=== PATIENT | female | born 1990 | race Caucasian/White ===

== ENCOUNTER 2016-09-01 19:17 | Observation (INO) | payer SELFPAY ==
[~2016-09-01] VITALS: Ht 157.5 cm; Wt 57.4 kg
[~2016-09-01 19:17] MED LIST: CEPH500C3 PO; CLEO300C2 PO; Z.0.NO CURRENT MEDS
[2016-09-01 19:18] VITALS: BP 111/86; PULSE 138; RESP 18; TEMP 98.9; O2SAT 98
[2016-09-01] MEDS ORDERED: ACETAMINOPHEN 325 MG TAB PO ONE (22:00)
[2016-09-01] MEDS ORDERED: HYDROmorphone HCL PF 1 MG/ML VIAL IV ONE (22:00)
[2016-09-01] MEDS ORDERED: SODIUM CHLOR 0.9% 1000 ML INJ 1,000 ML IV ONE ×2 (22:00)
--- NOTE | 2016-09-01 22:35 | PD ---
HPI Chief Complaint: Abdominal Pain Time Seen by Provider: 21:39 Travel History International Travel<30 days: No Contact w/Intl Traveler<30days: No Traveled to known affect area: No History of Present Illness HPI 25 year-old woman, active IV drug use, presents with abdominal pain and back pain it's been ongoing for weeks. She was seen at [facility] about a week and a half ago she was diagnosed with intrauterine at about 6 weeks and 1 day, and UTI and kidney pain. She was placed on Keflex but says she never really improved. She denies any urinary symptoms. She denies any vaginal bleeding or vaginal discharge. She does not know her last menstrual cycle was. She last used IV meth today. She does endorse fevers and chills have been ongoing as well. She does have a history of osteomyelitis in her back one year ago. She is 4 para 2, 0, 1, 2 with one previous ectopic . 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 SKIN: Extensive track herman. HEAD: Atraumatic. Normocephalic. EYES: Pupils equal and round. No scleral icterus. No injection or drainage. ENT: No nasal bleeding or discharge. Mucous membranes pink and moist. NECK: Trachea midline. No JVD. CARDIOVASCULAR: Regular rate and rhythm. No murmur appreciated. RESPIRATORY: No accessory muscle use. Clear to auscultation. Breath sounds equal bilaterally. GASTROINTESTINAL: Abdomen soft obese and soft. Is no significant tenderness. MUSCULOSKELETAL: No obvious deformities. No edema. NEUROLOGICAL: Awake and alert. No obvious cranial nerve deficits. Motor grossly within normal limits. Normal speech. PSYCHIATRIC: Childlike and labile in her mood. Data Data Last Documented VS Vital Signs Date Time Temp Pulse Resp B/P Pulse Ox O2 Delivery O2 Flow Rate FiO2 09/02/16 00:14 98 18 124/74 99 Room Air 09/01/16 19:18 98.9 Orders Complete Blood Count With Diff (09/01/16 21:53) Comprehensive Metabolic Panel (09/01/16 21:53) Lactic Acid Sepsis Protocol (09/01/16 21:53) Urinalysis - C+S If Indicated (09/01/16 21:53) Blood Culture (09/01/16 21:53) Chest, Single Ap (09/01/16 21:53) Ecg Monitoring (09/01/16 21:53) Iv Access Insert/Monitor (09/01/16 21:53) Oximetry (09/01/16 21:53) Oxygen Administration (09/01/16 21:53) Acetaminophen (Tylenol) (09/01/16 22:00) Hydromorphone Pf Inj (Dilaudid Pf Inj) (09/01/16 22:00) Beta Hcg (Quant/Titer) (09/01/16 21:53) Ed Poc Ultrasound (09/01/16 ) Westergren Sedimentation Rate (09/01/16 21:53) C-Reactive Protein (Crp) (09/01/16 21:53) Sodium Chlor 0.9% 1000 Ml Inj (Ns 1000 M (09/01/16 22:00) Sodium Chlor 0.9% 1000 Ml Inj (Ns 1000 M (09/01/16 22:00) Urine Culture (09/01/16 22:08) Mri L Spine W/O Contrast (09/01/16 ) Mri T Spine W/O Contrast (09/01/16 ) Hydromorphone Pf Inj (Dilaudid Pf Inj) (09/01/16 23:15) Hydromorphone Pf Inj (Dilaudid Pf Inj) (09/01/16 23:15) Vancomycin Inj (Vancomycin Inj) (09/02/16 00:45) Cefepime Inj (Maxipime Inj) (09/02/16 00:45) Admit Order (Ed Use Only) (09/02/16 ) Place In Observation (09/02/16 ) Vital Signs (Adult) Q4H (09/02/16 00:37) Activity Oob With Assistance (09/02/16 00:37) Patent Solicitor / Telemetry .CONTINUOUS (09/02/16 00:37) Diet Heart Healthy (09/02/16 Breakfast) Sodium Chloride 0.9% Flush (Ns Flush) (09/02/16 00:45) Sodium Chloride 0.9% Flush (Ns Flush) (09/02/16 09:00) Basic Metabolic Panel (Bmp) (09/03/16 06:00) Complete Blood Count With Diff (09/03/16 06:00) Case Management Consult (09/02/16 00:37) Naloxone Inj (Narcan Inj) (09/02/16 00:45) Acetaminophen (Tylenol) (09/02/16 00:45) Labs Laboratory Tests Test 09/01/16 22:08 White Blood Count 8.7 TH/MM3 Red Blood Count 3.71 MIL/MM3 Hemoglobin 10.2 GM/DL Hematocrit 30.7 % Mean Corpuscular Volume 82.6 FL Mean Corpuscular Hemoglobin 27.5 PG Mean Corpuscular Hemoglobin 33.2 % Concent Red Cell Distribution Width 15.3 % Platelet Count 206 TH/MM3 Mean Platelet Volume 7.7 FL Neutrophils (%) (Auto) 92.0 % Lymphocytes (%) (Auto) 4.5 % Monocytes (%) (Auto) 3.1 % Eosinophils (%) (Auto) 0.2 % Basophils (%) (Auto) 0.2 % Neutrophils # (Auto) 8.0 TH/MM3 Lymphocytes # (Auto) 0.4 TH/MM3 Monocytes # (Auto) 0.3 TH/MM3 Eosinophils # (Auto) 0.0 TH/MM3 Basophils # (Auto) 0.0 TH/MM3 CBC Comment DIFF FINAL Differential Comment Erythrocyte Sedimentation Rate 75 mm/hr Urine Color YELLOW Urine Turbidity HAZY Urine pH 6.5 Urine Specific [place] 1.035 Urine Protein 30 mg/dL Urine Glucose (UA) NEG mg/dL Urine Ketones NEG mg/dL Urine Occult Blood SMALL Urine Nitrite POS Urine Bilirubin NEG Urine Urobilinogen 2.0 MG/DL Urine Leukocyte Esterase MOD Urine RBC 1 /hpf Urine WBC 38 /hpf Urine Bacteria MANY /hpf Urine Mucus MANY /lpf Microscopic Urinalysis Comment CATH-CULTURE IND Sodium Level 136 MEQ/L Potassium Level 3.3 MEQ/L Chloride Level 106 MEQ/L Carbon Dioxide Level 17.9 MEQ/L Anion Gap 12 MEQ/L Blood Urea Nitrogen 10 MG/DL Creatinine 0.45 MG/DL Estimat Glomerular Filtration 170 ML/MIN Rate Random Glucose 100 MG/DL Calcium Level 8.5 MG/DL Total Bilirubin 0.4 MG/DL Aspartate Amino Transf 25 U/L (AST/SGOT) Alanine Aminotransferase 48 U/L (ALT/SGPT) Alkaline Phosphatase 95 U/L C-Reactive Protein 9.70 MG/DL Total Protein 7.8 GM/DL Albumin 3.0 GM/DL Human Chorionic Gonadotropin, [address] MIU/ML Quant Lactic Acid Level 2.2 mmol/L [facility] Medical Decision Making Medical Screen Exam Complete: Yes Emergency Medical Condition: Yes Interpretation(s) LABS: CBC remarkable for mild anemia Sedimentation rate 75 CMP remarkable for bicarbonate 17.9 CRP 9.7 Lactate 2.2 HCG 35,000 UA with slight pyuria L-spine MRI: Abnormal disc space at L5-S1 to be due to old osteomyelitis less discitis without any appreciable edema to suggest an acute process however active discitis/osteomyelitis difficult to exclude. T-spine MRI negative Differential Diagnosis UTI, pyelonephritis, osteomyelitis, renal lithiasis, other Narrative Course Medical decision making INITIAL: 25 year-old woman with active IV drug use, at about 9 weeks, with confirmed IUP, back pain fevers chills and no urinary symptoms, treated for UTI without improvement, concerning for osteomyelitis. We'll check labs, MRI, cultures, reassess. FINAL: 25 year-old woman with sepsis, likely pyelonephritis versus osteomyelitis. Blood cultures obtained. Vital sign assessment, could've by methamphetamine usage prior to arrival. We'll give IV antibiotics, IV fluids, reassess. Procedures Procedure Narrative Point of care ultrasound: Focus transabdominal ultrasounds perform a me at the bedside to evaluate for well-being. About 9 weeks 4 days by crown rump length. Some movement seen. heart rate about 218. Scripts No Active Prescriptions or Reported Meds Dwaine Downey MD Sep 01, 2016 22:35
--- NOTE | 2016-09-01 22:35 | RADRPT ---
EXAM DATE/TIME: 09/01/2016 22:28 [facility] COMPARISON: No previous studies available for comparison. INDICATIONS : Chest pain. MEDICAL HISTORY : None. SURGICAL HISTORY : None. ENCOUNTER: Initial ACUITY: 1 day PAIN SCORE: 0/10 LOCATION: Bilateral chest FINDINGS: Left perihilar infiltrate suspected with air bronchograms, appears to extend primarily into the lower lobe. Right lung appears reasonably clear. No pleural effusion or pneumothorax seen on either side. Heart size within normal limits. CONCLUSION: Early left lower lobe pneumonia suspected. Kurtis Chavez MD on September 01, 2016 at 22:31 Board Certified Radiologist. This report was verified electronically.
[2016-09-01 22:37] LABS: BASOPHIL % 0.2 % (0.0-2.0); EOSINOPHIL % 0.2 % (0.0-4.0); HEMATOCRIT 30.7 % (35.0-46.0); HEMO FLAGS DIFF FINAL; LYMPH % 4.5 % (9.0-44.0); LYMPHOCYTE # 0.4 TH/MM3 (1.0-4.8); MEAN CELL VOLUME 82.6 FL (80.0-100.0); MEAN CORPUSCULAR HEMOGLOBIN 27.5 PG (27.0-34.0); MEAN CORPUSCULAR HGB CONC 33.2 % (32.0-36.0); MONO % 3.1 % (0.0-8.0); PLATELET COUNT 206 TH/MM3 (150-450); RED BLOOD COUNT 3.71 MIL/MM3 (4.00-5.30); RED CELL DISTRIBUTION WIDTH 15.3 % (11.6-17.2); WHITE BLOOD COUNT 8.7 TH/MM3 (4.0-11.0)
[2016-09-01 22:46] LABS: BACTERIA, URINE MANY /hpf; BLOOD, URINE SMALL (NEG); GLUCOSE,URINE NEG (NEG); KETONE, URINE NEG (NEG); MUCUS URINE MANY /lpf (OCC); PH, URINE 6.5 (5.0-8.5); URINE COLOR YELLOW (YELLW/STRAW)
[2016-09-01 22:48] LABS: COMMENT (UR) CATH-CULTURE IND; CULTURE IF INDICATED CATH CULTURE IND; NITRITE,URINE POS (NEG)
[2016-09-01 22:57] LABS: ANION GAP 12 MEQ/L (5-15); AST (GOT) 25 U/L (15-37); BICARBONATE 17.9 MEQ/L (21.0-32.0); BLOOD UREA NITROGEN 10 MG/DL (7-18); CHLORIDE 106 MEQ/L (98-107); GLOMERULAR FILTRATION RATE 170 ML/MIN (>89); POTASSIUM 3.3 MEQ/L (3.5-5.1); SODIUM (NA) 136 MEQ/L (136-145)
[2016-09-01 23:15] LABS: ALKALINE PHOSPHATASE 95 U/L (45-117); ALT (GPT) 48 U/L (10-53); BETA HCG QUANT 35116 MIU/ML (0-5); TOTAL BILIRUBIN ADULT 0.4 MG/DL (0.2-1.0)
[2016-09-01] MEDS ORDERED: HYDROmorphone HCL PF 1 MG/ML VIAL IVS ONE (23:15)
[2016-09-01] MEDS ORDERED: HYDROmorphone HCL PF 1 MG/ML VIAL IV PUSH ONE (23:15)
[2016-09-02 00:13] VITALS: O2SAT 99
[2016-09-02 00:14] VITALS: BP 124/74; PULSE 98; RESP 18; O2SAT 99
--- NOTE | 2016-09-02 00:19 | RADRPT ---
EXAM DATE/TIME: 09/01/2016 23:20 This report includes an Addendum and supersedes previous reports for this exam. [facility] COMPARISON: MRI THORACIC SPINE W/O CONTRAST, September 01, 2016, 23:20. INDICATIONS : Osteomyelitis. MEDICAL HISTORY : . SURGICAL HISTORY : Appendectomy. Cholecystectomy. Left arm. ENCOUNTER: Subsequent ACUITY: 1 day PAIN SCORE: 8/10 LOCATION: Lower back. TECHNIQUE: Multiplanar multisequence MRI of the lumbar spine was performed without contrast. FINDINGS: There is a tiny subcentimeter cysts in the left kidney. L1-L2: No appreciable compromise to the thecal sac, or the exiting nerve roots is seen. The neural foramina and lateral recesses are patent bilaterally. L2-L3: No appreciable compromise to the thecal sac, or the exiting nerve roots is seen. The neural foramina and lateral recesses are patent bilaterally. L3-L4: No appreciable compromise to the thecal sac, or the exiting nerve roots is seen. The neural foramina and lateral recesses are patent bilaterally. L4-L5: No appreciable compromise to the thecal sac, or the exiting nerve roots is seen. The neural foramina and lateral recesses are patent bilaterally. L5-S1: There is significant loss of the disc at this level with irregularity of the endplates. The he ight of L5 vertebra is slightly reduced due to inferior end plate destructive changes. These however appear to be chronic without any significant edema. There is mild abutting of the exiting S1 nerve ro ot on the left due to a small broad-based disc protrusion. No appreciable thecal sac stenosis is seen . CONCLUSION: 1. Abnormal disc space at L5-S1 could be due to old osteomyelitis/discitis without any appreciable ed stevie to suggest an acute process. Active discitis/osteomyelitis however is difficult to exclude. 2. Slight abutting of the exiting S1 nerve root on the left due to a small broad-based disc protrusio n. K. Russell Garrison MD on September 02, 2016 at 0:11 Board Certified Radiologist. This report was verified electronically. 3. 4. ADDENDUM: 5. 6. I reviewed the examination began with Dr. Mensah. There is essentially no marrow edema at the tyrell mbosacral junction which makes discitis or osteomyelitis highly unlikely. There is no epidural fluid collection to suggest abscess. The visualized psoas musculature is normal. 7. 8. Musa Tapia MD on September 02, 2016 at 12:20 Board Certified Radiologist. This report was verified electronically.
--- NOTE | 2016-09-02 00:20 | RADRPT ---
EXAM DATE/TIME: 09/01/2016 23:20 [facility] COMPARISON: MRI LUMBAR SPINE W/O CONTRAST, September 01, 2016, 23:20. INDICATIONS : Osteomyelitis. MEDICAL HISTORY : . SURGICAL HISTORY : Appendectomy. Cholecystectomy. Left arm. ENCOUNTER: Subsequent ACUITY: 1 day PAIN SCORE: 8/10 LOCATION: Mid-back. TECHNIQUE: Multiplanar multisequence MRI of the thoracic spine was performed. FINDINGS: The marrow signal appears intact. No significant compression deformities are seen. No significant c ord compression is identified. The spinal cord appears intact. T1-T2: No appreciable compromise to the thecal sac, spinal cord, or the exiting nerve roots are seen. The neural foramina are grossly patent bilaterally. T2-T3: No appreciable compromise to the thecal sac, spinal cord, or the exiting nerve roots are seen. The neural foramina are grossly patent bilaterally. T3-T4: No appreciable compromise to the thecal sac, spinal cord, or the exiting nerve roots are seen. The neural foramina are grossly patent bilaterally. T4-T5: No appreciable compromise to the thecal sac, spinal cord, or the exiting nerve roots are seen. The neural foramina are grossly patent bilaterally. T5-T6: No appreciable compromise to the thecal sac, spinal cord, or the exiting nerve roots are seen. The neural foramina are grossly patent bilaterally. T6-T7: No appreciable compromise to the thecal sac, spinal cord, or the exiting nerve roots are seen. The neural foramina are grossly patent bilaterally. T7-T8: No appreciable compromise to the thecal sac, spinal cord, or the exiting nerve roots are seen. The neural foramina are grossly patent bilaterally. T8-T9: No appreciable compromise to the thecal sac, spinal cord, or the exiting nerve roots are seen. The neural foramina are grossly patent bilaterally. T9-T10: No appreciable compromise to the thecal sac, spinal cord, or the exiting nerve roots are see n. The neural foramina are grossly patent bilaterally. T10-T11: No appreciable compromise to the thecal sac, spinal cord, or the exiting nerve roots are se en. The neural foramina are grossly patent bilaterally. T11-T12: No appreciable compromise to the thecal sac, spinal cord, or the exiting nerve roots are se en. The neural foramina are grossly patent bilaterally. T12-L1: No appreciable compromise to the thecal sac, spinal cord, or the exiting nerve roots are s een. The neural foramina are grossly patent bilaterally. CONCLUSION: Essentially unremarkable study. Dayron Garrison MD on September 02, 2016 at 0:17 Board Certified Radiologist. This report was verified electronically.
[2016-09-02 00:29] LABS: LACTIC ACID GHOST NOT REPORTABLE
[2016-09-02] MEDS ORDERED: Vancomycin Consult Pharmacy 1 EA OTHER SCH (00:45)
[2016-09-02] MEDS ORDERED: NALOXONE HCL 0.4 MG/ML AMP IV PRN (00:45)
[2016-09-02] MEDS ORDERED: SODIUM CHLORIDE 0.9% FLUSH 10 ML FLUSH IV FLUSH PRN (00:45)
[2016-09-02] MEDS ORDERED: VANCOMYCIN INJ 1,000 MG in SODIUM CHLOR 0.9% 250 ML INJ 250 ML IV ONE (00:45)
[2016-09-02] MEDS ORDERED: ACETAMINOPHEN 325 MG TAB PO PRN (00:45)
[2016-09-02] MEDS ORDERED: CEFEPIME INJ 2,000 MG in SODIUM CHLORIDE 0.9% INJ 100 ML IV ONE (00:45)
[2016-09-02 02:59] VITALS: BP 92/59; PULSE 101; RESP 16; TEMP 98.4; O2SAT 93
[2016-09-02] MEDS ORDERED: HYDROmorphone HCL PF 1 MG/ML VIAL IV PUSH PRN (08:30)
[2016-09-02] MEDS ORDERED: POTASSIUM CHLORIDE 20 MEQ CONTROLLED RELEASE TAB PO ONE (08:45)
[2016-09-02 08:49] VITALS: BP 105/62
[2016-09-02] MEDS: CEFEPIME INJ 2,000 MG in SODIUM CHLORIDE 0.9% INJ 100 ML IV SCH ×2 (08:51→15:51)
[2016-09-02] MEDS: HYDROmorphone HCL PF 1 MG/ML VIAL IV PUSH PRN ×2 (08:52→13:55)
[2016-09-02] MEDS ORDERED: SODIUM CHLORIDE 0.9% FLUSH 10 ML FLUSH IV FLUSH SCH (09:00)
[2016-09-02] MEDS ORDERED: PRENATAL VITAMIN CHEWABLE TAB CHEW SCH (09:00)
[2016-09-02 09:38] LABS: BARBITURATES, URINE NEG (NEG)
[2016-09-02 09:48] LABS: AMPHETAMINE, URINE POS (NEG); COCAINE, URINE NEG (NEG)
[2016-09-02] MEDS ORDERED: HYDROmorphone HCL PF 1 MG/ML VIAL IV PUSH ONE (10:15)
[2016-09-02] MEDS ORDERED: LORazepam 2 MG/ML VIAL IV PUSH ONE (11:00)
[2016-09-02] MEDS ORDERED: VANCOMYCIN 1,000 MG/NS 250 ML IV SCH ×2 (11:00)
[2016-09-02] MEDS ORDERED: ONDANSETRON HCL 4 MG/2 ML VIAL IV PUSH PRN (11:15)
--- NOTE | 2016-09-02 11:19 | HHI.HP ---
HPI [facility] Primary Care Physician No Primary Care Physician Admission Diagnosis sepsis, pyelonephritis versus osteomyelitis Diagnoses: Chief Complaint: back pain, abdominal pain, fevers Travel History International Travel<30 Days: No Contact w/Intl Traveler <30 Da: No Traveled to Known Affected Are: No Sepsis Criteria SIRS Criteria (2 or more): Heart rate over 90 Sepsis Criteria (SIRS+source): Infect source susp/known History of Present Illness 25-year-old 9week female with history of active IVDU, opiate abuse, tobacco use, prior osteomyelitis of lumbar spine, presents with a two-day history of worsening back pain, and one-day history of lower abdominal pain. Patient reports she was recently at [facility] where she was diagnosed with intrauterine approximately six weeks along, and UTI. She was given prescription for Keflex but her symptoms never went away. The patient continues to use IV drugs. She states she takes oral Dilaudid 8-12 mg five times a day and Xanax from the streets. She also uses IV methamphetamines, most recent use was yesterday. She is currently seen in observation, crying out from her room, difficult to obtain history from the patient as she constantly asks for increased pain medication and anxiety medication. She complains of low back pain with radiation into the left buttocks, described as constant 10/10 squeezing/twisting pain. Denies difficulty ambulating. Denies saddle anesthesia or bladder/bowel incontinence. She does report subjective fevers/sweats at home over the past 2 days. She states her abdominal pain started sometime overnight, described as diffuse lower abdominal cramping with nausea and dry heaving however no diarrhea. Denies any dysuria or increased urinary frequency or urgency. Denies any hematuria. The patient continuously asks about what medications we are giving her and pleads for increased dosing. She states "If you work with me, then I'll work with you." I explained risks of giving Dilaudid and Ativan, however patient wishes to proceed with the medications despite the risks. She states in prior pregnancies she was on Percocet and weaned down to minimal dosing upon delivery. She does not have an OBGYN. She states she would be interested in drug rehab however right now she feels she is withdrawing and "nothing is being done about it". Of note, per RN, the patient voiced suicidal ideations to the overnight charge nurse, however patient denying suicidal ideations at this time. Review of Systems Except as stated in HPI: all other systems reviewed are Neg Past Family Social History Past Medical History Active IVDU Hx of osteomyelitis of the spine 4 para 2, 0, 1, 2 with one previous ectopic . Past Surgical History Appendectomy Cholecystectomy Left arm hardware placed/removed Reported Medications None. Allergies: Coded Allergies: *MDRO Multi-Drug Resistant Organism (Verified Allergy, Unknown, 09/02/16) MRSA Active Ordered Medications Current Medications Medications (Trade) Dose Ordered Sig/Shireen Route Start Time Stop Time Status Last Admin (NS Flush) 2 ml UNSCH PRN IV FLUSH 09/02/16 00:45 (NS Flush) 2 ml BID IV FLUSH 09/02/16 09:00 09/02/16 08:51 (Narcan Inj) 0.4 mg UNSCH PRN IV 09/02/16 00:45 Acetaminophen 650 mg 650 mg Q4H PRN PO 09/02/16 00:45 09/02/16 05:01 Pharmacy Profile Note 0 ml @ 0 mls/hr UNSCH OTHER 09/02/16 00:45 (Maxipime Inj/NS Inj) 100 ml @ 200 mls/hr Q8H IV 09/02/16 08:00 09/02/16 08:51 (Dilaudid Pf Inj) 0.2 mg Q4H PRN IV PUSH 09/02/16 08:30 Hydromorphone HCl 0.5 mg 0.5 mg Q4H PRN IV PUSH 09/02/16 08:30 09/02/16 08:52 (Vancomycin Inj/ NS 250 ml Inj) 250 ml @ 250 mls/hr Q8H IV 09/02/16 11:00 Miscellaneous Information SPECIFIC LAB TO BE DRAWN:VANCOMYCIN TROUGH DATE TO... ONCE ONCE .XX 09/03/16 02:45 09/03/16 02:46 (Ativan Inj) 1 mg ONCE ONCE IV PUSH 09/02/16 10:30 09/02/16 10:31 UNV Family History Patient denies any significant family history of heart disease, stroke, diabetes , or cancers. Social History Smokes tobacco 1 PPD Active IVDU and abuses Dilaudid, Xanax, Methamphetamines, Marijuana Physical Exam Vital Signs Vital Signs Date Time Temp Pulse Resp B/P Pulse Ox O2 Delivery O2 Flow Rate FiO2 09/02/16 08:49 105/62 09/02/16 06:46 18 09/02/16 02:59 98.4 101 16 92/59 93 09/02/16 00:14 98 18 124/74 99 Room Air 09/02/16 00:13 99 09/02/16 00:13 99 Room Air 09/01/16 19:18 98.9 138 18 111/86 98 Room Air Physical Exam GENERAL: Well-nourished, well-developed young female patient in [facility]. SKIN: Warm and dry. No rash. HEAD: Normocephalic. Atraumatic. EYES: Pupils equal and round. No scleral icterus. No injection or drainage. ENT: No nasal bleeding or discharge. Mucous membranes pink and moist. NECK: Supple. Trachea midline. CARDIOVASCULAR: Regular rate and rhythm. S1, S2 noted. No murmur appreciated. RESPIRATORY: No accessory muscle use. Clear to auscultation. Breath sounds equal bilaterally. GASTROINTESTINAL: Abdomen soft, non-tender, nondistended. Normoactive bowel sounds x4. MUSCULOSKELETAL: No obvious deformities. Extremities without clubbing, cyanosis , or edema. +Left CVA tenderness. Diffuse lumbar spine and left paraspinous muscles tender to palpation. NEUROLOGICAL: Awake and alert. No obvious cranial nerve deficits. Motor grossly within normal limits. 5/5 muscle strength in bilateral upper and lower extremities. Normal speech. PSYCHIATRIC: Extremely anxious and agitated mood; insight and judgment normal. Laboratory Laboratory Tests Test 09/01/16 22:08 White Blood Count 8.7 Red Blood Count 3.71 Hemoglobin 10.2 Hematocrit 30.7 Mean Corpuscular Volume 82.6 Mean Corpuscular Hemoglobin 27.5 Mean Corpuscular Hemoglobin 33.2 Concent Red Cell Distribution Width 15.3 Platelet Count 206 Mean Platelet Volume 7.7 Neutrophils (%) (Auto) 92.0 Lymphocytes (%) (Auto) 4.5 Monocytes (%) (Auto) 3.1 Eosinophils (%) (Auto) 0.2 Basophils (%) (Auto) 0.2 Neutrophils # (Auto) 8.0 Lymphocytes # (Auto) 0.4 Monocytes # (Auto) 0.3 Eosinophils # (Auto) 0.0 Basophils # (Auto) 0.0 CBC Comment DIFF FINAL Differential Comment Erythrocyte Sedimentation Rate 75 Urine Color YELLOW Urine Turbidity HAZY Urine pH 6.5 Urine Specific [place] 1.035 Urine Protein 30 Urine Glucose (UA) NEG Urine Ketones NEG Urine Occult Blood SMALL Urine Nitrite POS Urine Bilirubin NEG Urine Urobilinogen 2.0 Urine Leukocyte Esterase MOD Urine RBC 1 Urine WBC 38 Urine Bacteria MANY Urine Mucus MANY Microscopic Urinalysis Comment CATH-CULTURE IND Sodium Level 136 Potassium Level 3.3 Chloride Level 106 Carbon Dioxide Level 17.9 Anion Gap 12 Blood Urea Nitrogen 10 Creatinine 0.45 Estimat Glomerular Filtration 170 Rate Random Glucose 100 Calcium Level 8.5 Total Bilirubin 0.4 Aspartate Amino Transf 25 (AST/SGOT) Alanine Aminotransferase 48 (ALT/SGPT) Alkaline Phosphatase 95 C-Reactive Protein 9.70 Total Protein 7.8 Albumin 3.0 Human Chorionic Gonadotropin, 05811 Quant Lactic Acid Level 2.2 Urine Opiates Screen POS Urine Barbiturates Screen NEG Urine Amphetamines Screen POS Urine Benzodiazepines Screen POS Urine Cocaine Screen NEG Urine Cannabinoids Screen POS Date/Time Procedure Status Source Growth 09/01/16 22:19 Aerobic Blood Culture Received Blood Peripheral Pending 09/01/16 22:19 Anaerobic Blood Culture Received Blood Peripheral Pending 09/01/16 22:08 Urine Culture Received Urine Catheterized Urine Pending Result Diagram: 09/01/16220709/01/162207 Imaging Last Impressions Chest X-Ray 09/01/162152 Signed Impressions: Service Date/Time: Thursday, September 01, 2016 22:28 - CONCLUSION: Early left lower lobe pneumonia suspected. Kurtis Chavez MD Thoracic Spine MRI 09/01/16 0000 Signed Impressions: Service Date/Time: Thursday, September 01, 2016 23:20 - CONCLUSION: Essentially unremarkable study. KMonet Garrison MD Lumbar Spine MRI 09/01/16 0000 Signed Impressions: Service Date/Time: Thursday, September 01, 2016 23:20 - CONCLUSION: 1. Abnormal disc space at L5-S1 could be due to old osteomyelitis/discitis without any appreciable edema to suggest an acute process. Active discitis/osteomyelitis however is difficult to exclude. 2. Slight abutting of the exiting S1 nerve root on the left due to a small broad-based disc protrusion. Dayron Garrison MD Assessment and Plan Assessment and Plan 25-year-old 9week female with history of active IVDU, opiate abuse, tobacco use, prior osteomyelitis of lumbar spine, presents with a two-day history of worsening back pain, and one-day history of lower abdominal pain. Suspected Sepsis: patient with HR 138 upon arrival, afebrile however patient reports subjective fevers/sweats at home. Elevated neutrophils at 92%. Lactic acid 2.2, CRP 9.7, ESR 75. Suspect source UTI however need to rule out other etiologies. CXR also with possibly early infiltrate LLL. Active IVDU, blood cultures collected, pending. Lumbar spine MRI with suspected old osteomyelitis however difficult to exclude acute osteo/discitis. Continue IVF and antibiotics with IV Vanco/Cefepime. Consult infectious disease. UTI with Suspected Pyelonephritis: +CVA tenderness on exam. UA with +nitrites, leuks, bacteria, . Continue IV Cefepime/Vanco. Monitor urine culture. Low Back Pain: T-spine MRI essentially unremarkable. L-spine MRI shows abnormal disc space at L5-S1 could be due to old osteomyelitis/discitis without any appreciable edema to suggest acute process; active discitis/osteomyelitis however difficult to exclude. Continue pain control with Dilaudid prn. Patient is ambulating without difficulty. IV Drug Abuse: UDS positive for opiates, amphetamines, benzos, and cannabinoids. Patient hysterically crying all night/morning from pain and screaming that she is withdrawing from Dilaudid and Xanax. Had long discussion with the patient, will provide minimal doses of IV dilaudid to prevent withdrawal however needs to f/up with pain management and drug rehab voluntarily after discharge. Consult case management. Intrauterine : reportedly ~9weeks . With active IVDU as above. Discussed with specialty sales consultant obgyn, Dr. Huff, as [facility] does not provide detox/ rehab services, the patient will need to follow up at [facility] voluntarily or look into [facility]. Suicidal Ideations: reported overnight to charge nurse, however now patient is denying suicide ideations. Sitter ordered. Psychiatry consulted. Hypokalemia: K 3.3. Given po KCl replacement. Monitor BMP. Tobacco Use: counseled on cessation. DVT Prophylaxis: teds/SCDs Code Status Full Code Discussed Condition With Patient, RN, Dr. Pinon Discharge Planning 1640hrs: RN reports the patient wants to leave AMA. Overheard the patient on the phone asking someone to pick her up and take her to [employer]. The patient states she needs higher doses of pain medication since she takes at least 8mg of dilaudid 5x a day on the streets. She is continuously crying however has been tolerating oral intake and does get out of bed to ambulate to the restroom. The patient is AAOx4 and capable of making her own medical decisions. She understands the risk of worsening infection, sepsis, and . Discussed with Dr. Pinon, no medications will be provided as the patient is leaving AGAINST MEDICAL ADVICE. Attending Statement Patient seen in her bedroom in the presence of sitter and female Nurse, the patient states she uses 8 mg IV five times a day, when discussed with INDERJIT Monge she states the patient is using 8 mg tablets and crush them and use them IV, she states she wants this medicine IV now or sign AMA decided to sign AMA in the afternoon. no medicines given for discharge. the patient is alert and oriented x 4, all probable complications for discharge, like infection, the patient states she understands. Libia Levy PA-C Sep 02, 2016 11:19 am Anil Candelaria MD Sep 02, 2016 4:42 pm
[2016-09-02] MEDS ORDERED: SODIUM CHLOR 0.9% 1000 ML INJ 1,000 ML IV SCH (12:00)
[2016-09-02 12:15] VITALS: PULSE 89
[2016-09-02 13:41] VITALS: BP 109/64; PULSE 95; RESP 20; TEMP 97.8; O2SAT 100
--- NOTE | 2016-09-02 14:07 | PD.ID.CON ---
History of Present Illness Service ID Consult Requested By Dr Pinon Reason for Consult pyelonephritis Primary Care Physician No Primary Care Physician Diagnoses: History of Present Illness 25 yo F with IVP 9 weeks, active IVDU, h/o L spine osteo 1 yr ago poor historian, crying and asking for pain medx presented witrh few days of lower back pain, difficulty walking and fevers, chills Her w/u showed old changes on L spine MRI, suspected early LLL PNA and abnormal UA cw UTI blood clx negarive @ 1 day No fevers documented since admission Review of Systems Except as stated in HPI: all other systems reviewed are Neg Past Family Social History Allergies: Coded Allergies: *MDRO Multi-Drug Resistant Organism (Verified Allergy, Unknown, 09/07/16) MRSA (blood)-09/01/16 Past Medical History Active IVDU Hx of osteomyelitis of the spine 4 para 2, 0, 1, 2 with one previous ectopic . Past Surgical History Appendectomy Cholecystectomy Left arm hardware placed/removed Active Ordered Medications Medications where reviewed in EMR Antibiotics Include: cefepime vancomycin Family History Patient denies any significant family history of heart disease, stroke, diabetes, or cancers. Social History No ETOH Smokes tobacco 1 PPD Active IVDU and abuses Dilaudid, Xanax, Methamphetamines, Marijuana Physical Exam Vital Signs Vital Signs Date Time Temp Pulse Resp B/P Pulse Ox O2 Delivery O2 Flow Rate FiO2 09/02/16 13:41 97.8 95 20 109/64 100 09/02/16 12:15 89 09/02/16 08:49 105/62 09/02/16 06:46 18 09/02/16 02:59 98.4 101 16 92/59 93 09/02/16 00:14 98 18 124/74 99 Room Air 09/02/16 00:13 99 09/02/16 00:13 99 Room Air 09/01/16 19:18 98.9 138 18 111/86 98 Room Air Physical Exam CONSTITUTIONAL/GENERAL: This is a thin young female patient, in apparent distress 2/2 pain TUBES/LINES/DRAINS: SKIN: No jaundice, rashes, or lesions. + needle tracks on upper extremities. No wounds seen Skin temperature appropriate. Not diaphoretic. HEAD: Atraumatic. Normocephalic. EYES: Pupils equal and round and reactive. Extraocular motions intact. No scleral icterus. No injection or drainage. Fundi not examined. ENT: Hearing grossly normal. Nose without bleeding or purulent drainage. Throat without visible erythema, exudates, masses, or lesions. Poor dentition NECK: Trachea midline. Supple, nontender. CARDIOVASCULAR: Regular rate and rhythm without murmurs, gallops, or rubs. No JVD. Peripheral pulses symmetric. RESPIRATORY/CHEST: Symmetric, unlabored respirations. Clear to auscultation. Breath sounds equal bilaterally. No wheezes, rales, or rhonchi. GASTROINTESTINAL: Abdomen soft, non-tender, nondistended. No hepato-splenomegaly , or palpable masses. No guarding. Bowel sounds present. GENITOURINARY: Without palpable bladder distension. ? mild CTA tenderness L MUSCULOSKELETAL: Extremities without clubbing, cyanosis, or edema. No joint tenderness or effusion noted. No calf tenderness. No mottling or clubbing. BACK: exquisetely tender to palpation lower lumbar/sacrum no skin changes or anali deformities LYMPHATICS: No palpable cervical or supraclavicular adenopathy. NEUROLOGICAL: Awake and alert. Motor and sensory grossly within normal limits. Follows commands. Cognitively sharp. Moves all extremities. PSYCHIATRIC:Anxious, tearful; asking for pain meds Laboratory Laboratory Tests Test 09/01/16 22:08 White Blood Count 8.7 Red Blood Count 3.71 Hemoglobin 10.2 Hematocrit 30.7 Mean Corpuscular Volume 82.6 Mean Corpuscular Hemoglobin 27.5 Mean Corpuscular Hemoglobin 33.2 Concent Red Cell Distribution Width 15.3 Platelet Count 206 Mean Platelet Volume 7.7 Neutrophils (%) (Auto) 92.0 Lymphocytes (%) (Auto) 4.5 Monocytes (%) (Auto) 3.1 Eosinophils (%) (Auto) 0.2 Basophils (%) (Auto) 0.2 Neutrophils # (Auto) 8.0 Lymphocytes # (Auto) 0.4 Monocytes # (Auto) 0.3 Eosinophils # (Auto) 0.0 Basophils # (Auto) 0.0 CBC Comment DIFF FINAL Differential Comment Erythrocyte Sedimentation Rate 75 Urine Color YELLOW Urine Turbidity HAZY Urine pH 6.5 Urine Specific [place] 1.035 Urine Protein 30 Urine Glucose (UA) NEG Urine Ketones NEG Urine Occult Blood SMALL Urine Nitrite POS Urine Bilirubin NEG Urine Urobilinogen 2.0 Urine Leukocyte Esterase MOD Urine RBC 1 Urine WBC 38 Urine Bacteria MANY Urine Mucus MANY Microscopic Urinalysis Comment CATH-CULTURE IND Sodium Level 136 Potassium Level 3.3 Chloride Level 106 Carbon Dioxide Level 17.9 Anion Gap 12 Blood Urea Nitrogen 10 Creatinine 0.45 Estimat Glomerular Filtration 170 Rate Random Glucose 100 Calcium Level 8.5 Total Bilirubin 0.4 Aspartate Amino Transf 25 (AST/SGOT) Alanine Aminotransferase 48 (ALT/SGPT) Alkaline Phosphatase 95 C-Reactive Protein 9.70 Total Protein 7.8 Albumin 3.0 Human Chorionic Gonadotropin, 45003 Quant Lactic Acid Level 2.2 Urine Opiates Screen POS Urine Barbiturates Screen NEG Urine Amphetamines Screen POS Urine Benzodiazepines Screen POS Urine Cocaine Screen NEG Urine Cannabinoids Screen POS Date/Time Procedure Status Source Growth 09/01/16 22:19 Aerobic Blood Culture - Preliminary Resulted Blood Peripheral NO GROWTH IN 1 DAY 09/01/16 22:19 Anaerobic Blood Culture - Preliminary Resulted Blood Peripheral NO GROWTH IN 1 DAY 09/01/16 22:08 Urine Culture Received Urine Catheterized Urine Pending Result Diagram: 09/01/16220709/01/162207 Imaging MRI dw Dr Tapia: no acute osteo (no edema) Last Impressions Chest X-Ray 09/01/162152 Signed Impressions: Service Date/Time: Thursday, September 01, 2016 22:28 - CONCLUSION: Early left lower lobe pneumonia suspected. Kurtis Chavez MD Thoracic Spine MRI 09/01/16 0000 Signed Impressions: Service Date/Time: Thursday, September 01, 2016 23:20 - CONCLUSION: Essentially unremarkable study. Dayron Garrison MD Lumbar Spine MRI 09/01/16 0000 Signed Impressions: Service Date/Time: Thursday, September 01, 2016 23:20 - CONCLUSION: 1. Abnormal disc space at L5-S1 could be due to old osteomyelitis/discitis without any appreciable edema to suggest an acute process. Active discitis/osteomyelitis however is difficult to exclude. 2. Slight abutting of the exiting S1 nerve root on the left due to a small broad-based disc protrusion. Dayron Garrison MD ADDENDUM: 5. 6. I reviewed the examination began with Dr. Mensah. There is essentially no marrow edema at the lumbosacral junction which makes discitis or osteomyelitis highly unlikely. There is no epidural fluid collection to suggest abscess. The visualized psoas musculature is normal. 7. 8. Musa Tapia MD Assessment and Plan Assessment and Plan 25 F with 1st trimester Active IVDU Back pain h/o osteo with chronic appearing, but no acute changes on MRI LLL PNA UTI, pyelo - cont cefpeime, vancomycin - fu clx: blood, urine - chk sputum clx more rec's to follow Discussed Condition With Dr Tapia (radiology) Katy Mensah MD Sep 02, 2016 14:07
[2016-09-02] MEDS ORDERED: IBUPROFEN 400 MG TAB PO PRN (15:30)
[2016-09-02] MEDS ORDERED: LORazepam 2 MG/ML VIAL IV PUSH PRN (16:30)
[2016-09-03] MEDS ORDERED: PHARMACY ORDERED LAB ONE (02:45)
== END 2016-09-02 17:04 | disposition left against medical advice (07) ==
LOC: NEPC 19:17 → NEDA 09-02 00:38 → NEPGCP 09-02 01:52
PROVIDERS: ADMIT Internal Medicine; ATTEND Internal Medicine
DX: O26.891 Other specified pregnancy related conditions, first trimester (principal); O23.01 Infections of kidney in pregnancy, first trimester; B96.89 Other specified bacterial agents as the cause of diseases classified elsewhere; O99.511 Diseases of the respiratory system complicating pregnancy, first trimester; J18.9 Pneumonia, unspecified organism; M54.5 Low back pain; O99.331 Smoking (tobacco) complicating pregnancy, first trimester; F17.200 Nicotine dependence, unspecified, uncomplicated; O99.321 Drug use complicating pregnancy, first trimester; F11.10 Opioid abuse, uncomplicated; F15.10 Other stimulant abuse, uncomplicated; F12.10 Cannabis abuse, uncomplicated; F13.10 Sedative, hypnotic or anxiolytic abuse, uncomplicated; R45.851 Suicidal ideations; O99.281 Endocrine, nutritional and metabolic diseases complicating pregnancy, first trimester; E87.6 Hypokalemia; Z3A.09 9 weeks gestation of pregnancy
CPT/HCPCS: 71010; 72146; 72148; 76937; 80053; 80307; 81001; 83605; 84702; 85025; 85652; 86140; 86403; 87040; 87077; 87086; 87186; 87205; 96365; 96366; 96375; 96376; 99285; G0378; J0692; J1170; J2060; J2405; J3370; J7030; J7050

== ENCOUNTER 2017-01-22 17:25 | Inpatient (IN) | payer MEDICAID, OTHER ==
[2017-01-22] VITALS (7 sets, daily range): BP systolic 75–112; BP diastolic 32–69; PULSE 79–95; RESP 17–18; TEMP 97.8–98.2; O2SAT 99
--- NOTE | 2017-01-22 18:58 | PD ---
HPI Chief Complaint 31 week IUP. Substance abuse withdrawal. Date Seen: Jan 22, 2017 Time Seen: 18:30 Travel History International Travel<30 Days: No Contact w/Intl Traveler<30Days: No Known Affected Area: No History of Present Illness HPI Pt is a 26 yo who presents to ED and states she is 'having withdrawal' Pt reports a long history of Dilaudid dependence, following pain for recurrent osteomyelitis. Pt states EDC 03-24-2017 was confirmed in [facility] [facility] Since [facility] of [facility], she has been unable to get care initially because of insurance and then because she was too far along. Pt called Dr Anna 's office 2 days ago and was told to report here but she was not ready. Pt states she last used IV Herion yesterday and used IV Dilaudid 4mg today. Today, she reports shaking, feels flushed and extreme anxiety. She reports active movements. No vaginal bleeding. Weeks Gestation: 31 Para: 2 : 4 History Past Medical History Narrative Medical Recurrent Osteomyelitis IV Drug Substance Abuse Obstetric History Obstetric History X 2 term vaginal deliveries. Pt states she was prescribed Roxicodone throughout both pregnancies for her substance abuse. Past Surgical History Narrative Surgical Osteomyelitis debridement Family History Family History: Negative Social History Alcohol Use: Yes Tobacco Use: Yes Substance Abuse: Yes Allergies-Medications (Allergen,Severity, Reaction): Coded Allergies: *MDRO Multi-Drug Resistant Organism (Verified Allergy, Unknown, 09/07/16) MRSA (blood)-09/01/16 Home Meds No Active Prescriptions or Reported Meds Review of Systems Except as stated in HPI: all other systems reviewed are Neg Physical Exam Vital Signs Date Time Temp Pulse Resp B/P (MAP) Pulse Ox O2 Delivery O2 Flow Rate FiO2 01/22/17 17:27 98.2 95 17 112/69 (83) 99 Narrative GENERAL: Well-nourished, well-developed patient. SKIN: Warm and dry. HEAD: Normocephalic and atraumatic. EYES: No scleral icterus. No injection or drainage. ENT: No nasal drainage noted. Mucous membranes pink. Airway patent. NECK: Supple, trachea midline. No JVD. CARDIOVASCULAR: Regular rate and rhythm without murmurs, gallops, or rubs. RESPIRATORY: Breath sounds equal bilaterally. No accessory muscle use. BREASTS: Bilateral exam showed no masses , no retractions, no nipple discharge. ABDOMEN/GI: Abdomen soft, non-tender, bowel sounds present, no rebound, no guarding Gravid to [30] weeks size Fundal Height: [-] GENITOURINARY: External Genitalia: intact and normal in appearance BUS glands: [-] Cervix: [firm] Dilatation: [closed] Effacement: [not effaced] Station: [-3] Presentation: ] Membranes: [intact] Uterine Contractions: [none] FHT's: Category: [cat 1 Baseline: [-] Reactive: [-] Variability: [-] Decels: [-] EXTREMITIES: No cyanosis or edema. BACK: Nontender without obvious deformity. No CVA tenderness. NEUROLOGICAL: Awake and alert. Motor and sensory grossly within normal limits. Five out of 5 muscle strength in all muscle groups. Normal speech. Data Data Vital Signs Reviewed: Yes Orders Orders Ob (2e) Additional Admit Info (01/22/17 18:23) Vital Signs (Adult) .ON ADMISSION (01/22/17 18:20) ^ Labor Status (01/22/17 18:20) Urinalysis - C+S If Indicated (01/22/17 18:20) Diet Regular Basic (01/22/17 Dinner) Cbc No Diff, Includes Plts (01/22/17 18:20) Comprehensive Metabolic Panel (01/22/17 18:20) Type And Screen (01/22/17 18:20) Ob/Psych Drug Screen, Urine (01/22/17 18:20) Clonidine (Catapres) (01/22/17 18:30) Hydroxyzine Pamoate (Vistaril) (01/22/17 18:30) MDM Diagnosis Diagnosis: Primary Impression: 31 weeks gestation of Additional Impressions: Chronic recurrent multifocal osteomyelitis of humerus Substance abuse affecting in third trimester, antepartum Condition: Serious Scripts No Active Prescriptions or Reported Meds Avery Kurtz MD Jan 22, 2017 18:58
[2017-01-22] MEDS ORDERED: DOCUSATE SODIUM 100 MG CAP PO PRN ×2 (19:30)
[2017-01-22] MEDS ORDERED: SODIUM CHLORIDE 0.9% FLUSH 10 ML FLUSH IV FLUSH PRN ×2 (19:30)
[2017-01-22 19:34] LABS: AMORPHOUS SEDIMENT, URINE FEW; BACTERIA, URINE OCC /hpf; BILIRUBIN, URINE NEG (NEG); BLOOD, URINE NEG (NEG); GLUCOSE,URINE NEG (NEG); KETONE, URINE NEG (NEG); MUCUS URINE FEW /lpf (OCC); NITRITE,URINE NEG (NEG); PH, URINE 6.5 (5.0-8.5); SQUAMOUS EPITHELIAL CELL URINE 3 /hpf (0-5); URINE COLOR YELLOW (YELLW/STRAW); URINE LEUKOCYTE ESTERASE TRACE (NEG)
--- NOTE | 2017-01-22 19:35 | HHI.HP ---
HPI Chief Complaint 31 week IUP IV Heroin/ Dilaudid withdrawal.- flushing, anxiety, shakes. Travel History International Travel<30 Days: No Contact w/Intl Traveler<30Days: No Known Affected Area: No History of Present Illness HPI Pt is a 26 yo who presents to ED and states she is 'having withdrawal' Pt reports a long history of Dilaudid dependence, initially started following pain for recurrent osteomyelitis. Pt states EDC 03-24-2017 was confirmed in correction Since coming out of correction, she has been unable to get care initially because of insurance and then because she was too far along. Pt called Dr Anna 's office 2 days ago and was told to report here but she states that she was 'not ready'. Pt states she last used IV Herion yesterday and used IV Dilaudid 4mg today. Today, she reports shaking, feels flushed and extreme anxiety. She reports active movements. No vaginal bleeding. Weeks Gestation: 31 Para: 2 : 4 History Past Medical History Narrative Medical Recurrent osteomyelitis Long history of IV substance abuse. Medical History: Denies Significant Hx Obstetric History Obstetric History 2x term vaginal deliveries. pt states she was on Roxicodone throughout both pregnancies. Past Surgical History Narrative Surgical Osteomyelitis debridement, multiple Social History Alcohol Use: Yes Tobacco Use: Yes Substance Abuse: Yes (IV Heroin/ Dilaudid) Allergies-Medications (Allergen,Severity, Reaction): Coded Allergies: *MDRO Multi-Drug Resistant Organism (Verified Allergy, Unknown, 09/07/16) MRSA (blood)-09/01/16 Home Meds No Active Prescriptions or Reported Meds Review of Systems Except as stated in HPI: all other systems reviewed are Neg Physical Exam Vital Signs Date Time Temp Pulse Resp B/P (MAP) Pulse Ox O2 Delivery O2 Flow Rate FiO2 01/22/17 17:27 98.2 95 17 112/69 (83) 99 Narrative GENERAL: Well-nourished, well-developed patient. SKIN: Warm and dry. HEAD: Normocephalic and atraumatic. EYES: No scleral icterus. No injection or drainage. ENT: No nasal drainage noted. Mucous membranes pink. Airway patent. NECK: Supple, trachea midline. No JVD. CARDIOVASCULAR: Regular rate and rhythm without murmurs, gallops, or rubs. RESPIRATORY: Breath sounds equal bilaterally. No accessory muscle use. BREASTS: Bilateral exam showed no masses , no retractions, no nipple discharge. ABDOMEN/GI: Abdomen soft, non-tender, bowel sounds present, no rebound, no guarding Gravid to [30] weeks size GENITOURINARY: External Genitalia: intact and normal in appearance BUS glands: [] Cervix: [firm] Dilatation: [closed] Effacement: [non effaced] Station: [high] Presentation: [] Membranes: [intact ] Uterine Contractions: [none] FHT's: Category: [1] Baseline: [-] Reactive: [-] Variability: [moderate] Decels: [none] EXTREMITIES: No cyanosis or edema. BACK: Nontender without obvious deformity. No CVA tenderness. NEUROLOGICAL: Awake and alert. Motor and sensory grossly within normal limits. Five out of 5 muscle strength in all muscle groups. Normal speech. Caprini VTE Risk Assessment Caprini VTE Risk Assessment: No/Low Risk (score <= 1) Caprini Risk Assessment Model Point Value = 1 Point Value = 2 Point Value = 3 Point Value = 5 Age 41-60 Minor surgery BMI > 25 kg/m2 Swollen legs Varicose veins or History of unexplained or recurrent spontaneous Oral contraceptives or hormone replacement Sepsis (< 1 month) Serious lung disease, including pneumonia (< 1 month) Abnormal pulmonary function Acute myocardial infarction Congestive heart failure (< 1 month) History of inflammatory bowel disease Medical patient at bed rest Age 61-74 Arthroscopic surgery Major open surgery (> 45 min) Laparoscopic surgery (> 45 min) Malignancy Confined to bed (> 72 hours) Immobilizing plaster cast Central venous access Age >= 75 History of VTE Family history of VTE Factor V Leiden Prothrombin [id number] Lupus anticoagulant Anticardiolipin antibodies Elevated serum homocysteine Heparin-induced thrombocytopenia Other congenital or acquired thrombophilia Stroke (< 1 month) Elective arthroplasty Hip, pelvis, or leg fracture Acute spinal cord injury (< 1 month) Prophylaxis Regimen Total Risk Factor Score Risk Level Prophylaxis Regimen 0-1 Low Early ambulation 2 Moderate Order ONE of the following: *Sequential Compression Device (SCD) *Heparin 5000 units SQ BID 3-4 Higher Order ONE of the following medications: *Heparin 5000 units SQ TID *Enoxaparin/Lovenox 40 mg SQ daily (WT < 150 kg, CrCl > 30 mL/min) *Enoxaparin/Lovenox 30 mg SQ daily (WT < 150 kg, CrCl > 10-29 mL/min) *Enoxaparin/Lovenox 30 mg SQ BID (WT < 150 kg, CrCl > 30 mL/min) AND/OR *Sequential Compression Device (SCD) 5 or more Highest Order ONE of the following medications: *Heparin 5000 units SQ TID (Preferred with Epidurals) *Enoxaparin/Lovenox 40 mg SQ daily (WT < 150 kg, CrCl > 30 mL/min) *Enoxaparin/Lovenox 30 mg SQ daily (WT < 150 kg, CrCl > 10-29 mL/min) *Enoxaparin/Lovenox 30 mg SQ BID (WT < 150 kg, CrCl > 30 mL/min) AND *Sequential Compression Device (SCD) Data Data Vital Signs Reviewed: Yes Orders Orders Ob (2e) Additional Admit Info (01/22/17 18:23) Vital Signs (Adult) .ON ADMISSION (01/22/17 18:20) ^ Labor Status (01/22/17 18:20) Urinalysis - C+S If Indicated (01/22/17 18:20) Diet Regular Basic (01/22/17 Dinner) Cbc No Diff, Includes Plts (01/22/17 18:20) Comprehensive Metabolic Panel (01/22/17 18:20) Type And Screen (01/22/17 18:20) Ob/Psych Drug Screen, Urine (01/22/17 18:20) Clonidine (Catapres) (01/22/17 18:30) Hydroxyzine Pamoate (Vistaril) (01/22/17 18:30) Assessment/Plan Assessment and Plan 26 yo at 31 weeks and 2 days. Presents with substance abuse withdrawal. Pt with history of recurrent osteomyelitis of Left upper extremity. Will admit for control of withdrawal symptoms. ID consult. OB ultrasound in am. Dr Anna kindly available for consult. Avery Kurtz MD Jan 22, 2017 19:35
[2017-01-22] MEDS: cloNIDine HCL 0.1 MG TAB PO PRN ×2 (19:55)
[2017-01-22] MEDS ORDERED: BETAMETHASONE SOD PHOS/ACETATE SUSP 30 MG/5 ML VIAL IM SCH ×2 (20:00)
[2017-01-22] MEDS: ONDANSETRON ODT 4 MG TAB PO PRN ×2 (20:18)
[2017-01-22] MEDS: LORazepam 0.5 MG TAB PO PRN ×2 (20:18)
[2017-01-22] MEDS: ACETAMINOPHEN 325 MG TAB PO PRN ×2 (20:18)
[2017-01-22] MEDS: SODIUM CHLORIDE 0.9% FLUSH 10 ML FLUSH IV FLUSH SCH ×2 (21:00)
[2017-01-22 23:59] LABS: HEMATOCRIT 27.5 % (35.0-46.0); HEMOGLOBIN 9.4 GM/DL (11.6-15.3); MEAN CELL VOLUME 86.4 FL (80.0-100.0); MEAN CORPUSCULAR HEMOGLOBIN 29.6 PG (27.0-34.0); MEAN CORPUSCULAR HGB CONC 34.3 % (32.0-36.0); MEAN PLATELET VOLUME 7.8 FL (7.0-11.0); PLATELET COUNT 229 TH/MM3 (150-450); RED BLOOD COUNT 3.19 MIL/MM3 (4.00-5.30); RED CELL DISTRIBUTION WIDTH 13.5 % (11.6-17.2); WHITE BLOOD COUNT 7.1 TH/MM3 (4.0-11.0)
[2017-01-23] VITALS (8 sets, daily range): BP systolic 73–89; BP diastolic 33–45; PULSE 72–81; RESP 20; TEMP 97.8–98.4
[2017-01-23 00:16] LABS: ALBUMIN 2.4 GM/DL (3.4-5.0); ALT (GPT) 39 U/L (10-53); AST (GOT) 24 U/L (15-37); BICARBONATE 21.5 MEQ/L (21.0-32.0); BLOOD UREA NITROGEN 11 MG/DL (7-18); CALCIUM 8.4 MG/DL (8.5-10.1); CHLORIDE 107 MEQ/L (98-107); CREATININE 0.38 MG/DL (0.50-1.00); GLOMERULAR FILTRATION RATE 205 ML/MIN (>89); GLUCOSE,RANDOM 119 MG/DL (74-106); SODIUM (NA) 139 MEQ/L (136-145)
[2017-01-23 00:18] LABS: ALKALINE PHOSPHATASE 142 U/L (45-117); TOTAL BILIRUBIN ADULT 0.2 MG/DL (0.2-1.0); TOTAL PROTEIN 7.2 GM/DL (6.4-8.2)
[2017-01-23] MEDS ORDERED: ZOLPIDEM TARTRATE 10 MG TAB PO ONE ×2 (03:32)
[2017-01-23] MEDS: ACETAMINOPHEN 325 MG TAB PO PRN ×2 (03:38)
[2017-01-23] MEDS: ONDANSETRON ODT 4 MG TAB PO PRN ×2 (03:38)
[2017-01-23] MEDS ORDERED: ZOLPIDEM TARTRATE 10 MG TAB PO PRN ×2 (03:45)
[2017-01-23] MEDS: LORazepam 0.5 MG TAB PO PRN ×2 (03:58)
[2017-01-23] MEDS: cloNIDine HCL 0.1 MG TAB PO PRN ×2 (03:58)
[2017-01-23] MEDS ORDERED: MULTIVIT/MIN/PREN/FOL AC/IRON PRENATAL TAB PO SCH ×2 (09:00)
[2017-01-23] MEDS: SODIUM CHLORIDE 0.9% FLUSH 10 ML FLUSH IV FLUSH SCH ×2 (09:00)
== END 2017-01-23 10:34 | disposition left against medical advice (07) | DRG 781 ==
LOC: HOBED 17:25 → H2EA 18:25
PROVIDERS: ADMIT Obstetrics & Gynecology; ATTEND Obstetrics & Gynecology
DX: O99.323 Drug use complicating pregnancy, third trimester (principal); F11.23 Opioid dependence with withdrawal; Z3A.31 31 weeks gestation of pregnancy; F17.210 Nicotine dependence, cigarettes, uncomplicated; O99.333 Smoking (tobacco) complicating pregnancy, third trimester
CPT/HCPCS: 76816; 80053; 80307; 81001; 85027; 85652; 86850; 86900; 86901; G0481; J0702

== ENCOUNTER 2017-02-08 12:12 | Emergency (ER) | payer MEDICAID ==
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
[2017-02-08] MEDS ORDERED: cloNIDine HCL 0.1 MG TAB PO PRN (14:15)
[2017-02-08] MEDS ORDERED: hydrOXYzine PAMOATE 25 MG CAP PO PRN (14:15)
[2017-02-08] MEDS ORDERED: LORazepam 1 MG TAB PO PRN (14:15)
[2017-02-08] MEDS ORDERED: GABAPENTIN 300 MG CAP PO SCH (18:00)
== END 2017-02-08 15:00 | disposition left against medical advice (07) ==
LOC: HOBED 12:12
DX: O36.8130 Decreased fetal movements, third trimester, not applicable or unspecified (principal); O99.323 Drug use complicating pregnancy, third trimester; F11.10 Opioid abuse, uncomplicated; O99.333 Smoking (tobacco) complicating pregnancy, third trimester; Z3A.33 33 weeks gestation of pregnancy
CPT/HCPCS: 76819; 99284

== ENCOUNTER 2017-03-12 00:43 | Inpatient (IN) | payer MEDICAID ==
[~2017-03-12] VITALS: Ht 157.5 cm; Wt 81.6 kg
[2017-03-12] VITALS (35 sets, daily range): BP systolic 80–121; BP diastolic 47–80; PULSE 60–90; RESP 16–18; TEMP 97–98.7
[2017-03-12] MEDS ORDERED: LACTATED RINGER'S 1000 ML INJ 1,000 ML IV PRN (01:21)
--- NOTE | 2017-03-12 01:24 | PD ---
HPI Chief Complaint SROM Travel History International Travel<30 Days: No Contact w/Intl Traveler<30Days: No Known Affected Area: No History of Present Illness HPI 26 yr old at 38/1 presents with leakage of fluid. Accompanied by significant other and adoptive parents. Patient reports that her water broke around 4:30pm this afternoon, clear fluids. Since then she was preparing ( washing clothes and packing) for her trip to the ED. She has had no care since being released from alf in August due to Medicaid issues. This is her 6th visit to the OB ED. She admits to using 0.1g of Heroin and 2mg of Xanax a few hours ago because she was withdrawing. She admits to Meth use 2 days ago. She has smoked 1ppd throughout the and occasional marijuana. Per chart review, she has used IV dilaudid. She complains of heart burn. She endorses good movement. She denies vaginal bleeding, contractions, CP, SOB, and abdominal pain. History Past Medical History Narrative Medical Hx of substance abuse Obstetric History Obstetric History , no complications that she reports 1 child lives with their father, 1 child given up for adoption Hx of ectopic , D & C performed Past Surgical History Narrative Surgical L arm I & D for osteomyelitis Cholecystectomy Appendectomy D&C for ectopic Family History Family History: Negative Social History Narrative Social History Admits to heroin, Xanax, and Meth Per chart review, IV Dilaudid use Smoking 1ppd throughout Denies alcohol use Alcohol Use: No Tobacco Use: Yes Substance Abuse: Yes Allergies-Medications (Allergen,Severity, Reaction): Coded Allergies: *MDRO Multi-Drug Resistant Organism (Verified Allergy, Unknown, 09/07/16) MRSA (blood)-09/01/16 Home Meds Reported Medications Pnv No.95/Ferrous Fum/Folic AC ( Vitamins Tablet) 28 Mg Iron-800 Mcg Tablet 03/12/17 Review of Systems Except as stated in HPI: all other systems reviewed are Neg Physical Exam Narrative GENERAL: Well-nourished, well-developed patient. SKIN: Warm and dry. HEAD: Normocephalic and atraumatic. EYES: No scleral icterus. No injection or drainage. ENT: No nasal drainage noted. Mucous membranes pink. Airway patent. NECK: Supple, trachea midline. No JVD. CARDIOVASCULAR: Regular rate and rhythm without murmurs, gallops, or rubs. RESPIRATORY: Breath sounds equal bilaterally. No accessory muscle use. ABDOMEN/GI: Abdomen soft, non-tender, bowel sounds present, no rebound, no guarding GENITOURINARY: performed by nurse Cervix: posterior Dilatation: 2cm Effacement: 70% Station: -2 Presentation: vertex Membranes: ruptured Uterine Contractions: none FHT's: Category: 1 Baseline: 120 Reactive: yes Variability: moderate Decels: no EXTREMITIES: No cyanosis or edema. BACK: Nontender without obvious deformity. NEUROLOGICAL: Awake and alert. Motor and sensory grossly within normal limits. Five out of 5 muscle strength in all muscle groups. Normal speech. Data Data Vital Signs Reviewed: Yes Orders Orders Ob (2e) Additional Admit Info (03/12/17 00:58) MDM Plan 26 yr old at 38/1 presents with SROM due to substance abuse. 1. SROM -Patient states SROM<18hrs at 16:30 today - labs, hepatitis profile, RPR, GC & chlamydia PCR pending -Type & screen pending -CBC w/ diff pending -Start Oxytocin 1--30 to induce contractions 2. Intrauterine -FHTs: category 1, 120s baseline HR -Most recent OB ultrasound from 02/09, normal amniotic fluid, BPP 8/8 2. Substance Abuse -UDS positive for opiates, benzos, amphetamines, and cannabinoids -Ativan 1 mg IV push q4h PRN for withdrawals 3. GBS unknown -rapid GBS PCR pending -Start Penicillin G IV q4h due to risk factors 4. Hx of MRSA -MRSA PCR surveillance pending 5. GERD -Tums chew tablet, if worsening, will consider Zantac s/d/w Dr. Troncoso and Dr. Quintanilla-Marielena Willis MD Mar 12, 2017 01:24
[2017-03-12] MEDS ORDERED: OXYTOCIN 30 UNITS-500ML PREMIX 500 ML IV ONE (01:30)
[2017-03-12] MEDS ORDERED: LIDOCAINE HCL 1% 50 ML VIAL INFIL PRN (01:30)
[2017-03-12] MEDS ORDERED: LIDOCAINE HCL 1% 50 ML VIAL I-DERMAL PRN (01:30)
[2017-03-12] MEDS ORDERED: CITRIC ACID-SODIUM CITRATE LIQ 30 ML UDC PO SCH (01:30)
[2017-03-12] MEDS ORDERED: MINERAL OIL 10 ML VIAL TOPICAL PRN (01:30)
[2017-03-12] MEDS ORDERED: SODIUM CHLORID 0.9% 500 ML INJ 500 ML IV PRN (01:30)
[2017-03-12 01:39] LABS: BACTERIA, URINE RARE /hpf; BLOOD, URINE NEG (NEG); COMMENT (UR) CULT NOT INDICATED; CULTURE IF INDICATED CULT NOT INDICATED; GLUCOSE,URINE NEG (NEG); KETONE, URINE 10 mg/dL (NEG); MUCUS URINE FEW /lpf (OCC); NITRITE,URINE NEG (NEG); SQUAMOUS EPITHELIAL CELL URINE 1 /hpf (0-5); URINE COLOR YELLOW (YELLW/STRAW)
[2017-03-12] MEDS ORDERED: SODIUM CHLOR 0.9% 1000 ML INJ 1,000 ML IV PRN (01:41)
[2017-03-12] MEDS ORDERED: OXYTOCIN 30 UNITS-500ML PREMIX 500 ML IV SCH ×3 (01:45→19:00)
[2017-03-12] MEDS ORDERED: PRENTAB7 (01:45)
[2017-03-12] MEDS ORDERED: LORazepam 2 MG/ML VIAL IV PUSH PRN (02:00)
[2017-03-12] MEDS ORDERED: PENICILLIN G POTASSIUM INJ 5,000,000 UNITS in SODIUM CHLORIDE 0.9% INJ 100 ML IV ONE (02:00)
[2017-03-12] MEDS: LACTATED RINGER'S 1000 ML INJ 1,000 ML IV SCH ×2 (02:01→16:42)
--- NOTE | 2017-03-12 02:38 | HHI.HP ---
History & Physical H&P Patient Name: Xiao Ball Unit Number: [id number] Date of : 1990 Patient Status: Admitted Inpatient Attending Doctor: Kye Troncoso II, MD HPI HPI Chief Complaint SROM Travel History International Travel<30 Days: No Contact w/Intl Traveler<30Days: No Known Affected Area: No History of Present Illness HPI 26 yr old at 38/1 presents with leakage of fluid. Accompanied by significant other and adoptive parents. Patient reports that her water broke around 4:30pm this afternoon, clear fluids. Since then she was preparing ( washing clothes and packing) for her trip to the ED. She has had no care since being released from long-term in August due to Medicaid issues. This is her 6th visit to the OB ED. She admits to using 0.1g of Heroin and 2mg of Xanax a few hours ago because she was withdrawing. She admits to Meth use 2 days ago. She has smoked 1ppd throughout the and occasional marijuana. Per chart review, she has used IV dilaudid. She complains of heart burn. She endorses good movement. She denies vaginal bleeding, contractions, CP, SOB, and abdominal pain. History (Limited) History Past Medical History Narrative Medical Hx of substance abuse Obstetric History Obstetric History , no complications that she reports 1 child lives with their father, 1 child given up for adoption Hx of ectopic , D & C performed Past Surgical History Narrative Surgical L arm I & D for osteomyelitis Cholecystectomy Appendectomy D&C for ectopic Family History Family History: Negative Social History Narrative Social History Admits to heroin, Xanax, and Meth Per chart review, IV Dilaudid use Smoking 1ppd throughout Denies alcohol use Alcohol Use: No Tobacco Use: Yes Substance Abuse: Yes Allergies-Medications Allergies-Medications (Allergen,Severity, Reaction): Coded Allergies: *MDRO Multi-Drug Resistant Organism (Verified Allergy, Unknown, 09/07/16) MRSA (blood)-09/01/16 Home Meds Reported Medications Pnv No.95/Ferrous Fum/Folic AC ( Vitamins Tablet) 28 Mg Iron-800 Mcg Tablet 03/12/17 ROS Review of Systems Except as stated in HPI: all other systems reviewed are Neg Physical Exam Physical Exam Narrative GENERAL: Well-nourished, well-developed patient. SKIN: Warm and dry. HEAD: Normocephalic and atraumatic. EYES: No scleral icterus. No injection or drainage. ENT: No nasal drainage noted. Mucous membranes pink. Airway patent. NECK: Supple, trachea midline. No JVD. CARDIOVASCULAR: Regular rate and rhythm without murmurs, gallops, or rubs. RESPIRATORY: Breath sounds equal bilaterally. No accessory muscle use. ABDOMEN/GI: Abdomen soft, non-tender, bowel sounds present, no rebound, no guarding GENITOURINARY: performed by nurse Cervix: posterior Dilatation: 2cm Effacement: 70% Station: -2 Presentation: vertex Membranes: ruptured Uterine Contractions: none FHT's: Category: 1 Baseline: 120 Reactive: yes Variability: moderate Decels: no EXTREMITIES: No cyanosis or edema. BACK: Nontender without obvious deformity. NEUROLOGICAL: Awake and alert. Motor and sensory grossly within normal limits. Five out of 5 muscle strength in all muscle groups. Normal speech. Data Data Data Vital Signs Reviewed: Yes Orders Orders Ob (2e) Additional Admit Info (03/12/17 00:58) MDM MDM Plan 26 yr old at 38/1 presents with SROM due to substance abuse. 1. SROM -Patient states SROM<18hrs at 16:30 today - labs, hepatitis profile, RPR, GC & chlamydia PCR pending -Type & screen pending -CBC w/ diff pending -Start Oxytocin 1-1-30 to induce contractions 2. Intrauterine -FHTs: category 1, 120s baseline HR -Most recent OB ultrasound from 02/09, normal amniotic fluid, BPP 8/8 2. Substance Abuse -UDS positive for opiates, benzos, amphetamines, and cannabinoids -Ativan 1 mg IV push q4h PRN for withdrawals 3. GBS unknown -rapid GBS PCR pending -Start Penicillin G IV q4h due to risk factors 4. Hx of MRSA -MRSA PCR surveillance pending 5. GERD -Tums chew tablet, if worsening, will consider Zantac s/d/w Dr. Troncoso and Marielena Cowan MD R1 Mar 12, 2017 01:24 Marielena Chandler MD R1 Mar 12, 2017 02:38
[2017-03-12] MEDS ORDERED: ZOLPIDEM TARTRATE 5 MG TAB PO PRN (03:00)
[2017-03-12] MEDS ORDERED: CALCIUM CARBONATE 500 MG CHEWABLE TAB CHEW SCH (04:00)
[2017-03-12 04:04] LABS: AUTOMATED NEUTROPHIL # 5.5 TH/MM3 (1.8-7.7); BASOPHIL % 0.3 % (0.0-2.0); EOSINOPHIL % 0.6 % (0.0-4.0); HEMO FLAGS DIFF FINAL; LYMPH % 21.4 % (9.0-44.0); LYMPHOCYTE # 1.7 TH/MM3 (1.0-4.8); MEAN CORPUSCULAR HEMOGLOBIN 27.2 PG (27.0-34.0); MEAN CORPUSCULAR HGB CONC 33.2 % (32.0-36.0); MONO % 7.4 % (0.0-8.0); NEUT % 70.3 % (16.0-70.0); PLATELET COUNT 240 TH/MM3 (150-450); RED BLOOD COUNT 3.66 MIL/MM3 (4.00-5.30); RED CELL DISTRIBUTION WIDTH 14.6 % (11.6-17.2); WHITE BLOOD COUNT 7.8 TH/MM3 (4.0-11.0)
[2017-03-12] MEDS ORDERED: PENICILLIN G POTASSIUM INJ 2,500,000 UNITS in SODIUM CHLORIDE 0.9% INJ 100 ML IV SCH (06:00)
[2017-03-12 06:11] LABS: CHLAMYDIA PCR NOT DETECTED (NOT DETECT); NEISSERIA PCR NOT DETECTED (NOT DETECT)
[2017-03-12] MEDS ORDERED: NICOTINE 21 MG/24 HR PATCH T-DERMAL SCH (09:00)
--- NOTE | 2017-03-12 09:40 | PD.LABORPN ---
Subjective Subjective Patient states she is tired. IV access obtained by access team today (history of IVDU). Pit at 2 mIU/min. PCN initiated simultaneously at 8am. Objective Vital Signs Vital Signs Date Time Temp Pulse Resp B/P (MAP) Pulse Ox O2 Delivery O2 Flow Rate FiO2 03/12/17 08:51 88 90/61 (71) 03/12/17 08:51 97.6 16 03/12/17 06:30 16 03/12/17 05:00 18 03/12/17 03:30 98.7 03/12/17 03:30 18 Objective EXAM ON ADMISSION AT 1AM: Cervix: posterior Dilatation: 2cm Effacement: 70% Station: -2 Presentation: vertex Membranes: ruptured Uterine Contractions: none FHT's: Category: 1 Baseline: 120s Reactive: 140s Variability: moderate Decels: no Weeks Gestation: 38 Pt started active labor?: No Medical induction of labor?: No Artificial rupture of membrane: No Assessment/Plan Assessment and Plan 26 yr old at 38 and 2/7 weeks, EDC 03/24/2017 admitted for labor due to SROM on 03/11/17 @ ~1630. See admission H&P for further details. Adoptive parents reportedly accompanying patient. No PNC. Illicit drug use (reported on admission 0.1g of Heroin and 2mg of Xanax a few hours prior to admission). Meth used 03/09/2017. Tobacco 1 pack per day, occasional marijuana. History of IV dilaudid use per EMR. 1. SROM -Patient states SROM<18hrs at 16:30 03/11/2017 - labs, hepatitis profile, RPR, GC & chlamydia PCR so far negative, some pending. HIV negative, GC/Chlamydia negative, GBS NEGATIVE. RPR pending, Hepatitis profile pending. -Type & screen completed, A negative, did not receive Rhogam -CBC wnl -Start Oxytocin 03-22-29 to induce contractions 2. Intrauterine -FHTs: category 1, 120s baseline HR -Most recent OB ultrasound from 02/09, normal amniotic fluid, BPP 8/8. 2. Substance Abuse -UDS positive for opiates, benzos, amphetamines, and cannabinoids -Ativan 1 mg IV push q4h PRN for withdrawal symptoms 3. GBS unknown on admission -rapid GBS PCR negative -Started Penicillin G IV q4h due to risk factors, may discontinue but likely will be PPROM 4. Hx of MRSA -MRSA PCR screen negative 5. GERD -Tums chew tablet, if worsening, will consider Zantac s/d/w Dr. Troncoso and Dr. Quintanilla-Cristina Gutierrez MD R2 Mar 12, 2017 09:40
[2017-03-12] MEDS: PENICILLIN G POTASSIUM INJ 2,500,000 UNITS in SODIUM CHLORIDE 0.9% INJ 100 ML IV SCH ×2 (13:01→16:42)
[2017-03-12] MEDS ORDERED: fentaNYL 2MCG-BUPIV 0.125% INJ 100 ML ONE (13:38)
--- NOTE | 2017-03-12 13:39 | PD.LABORPN ---
Subjective Subjective Pt awake and in BR requesting opiates for withdrawal. Objective Vital Signs Vital Signs Date Time Temp Pulse Resp B/P (MAP) Pulse Ox O2 Delivery O2 Flow Rate FiO2 03/12/17 12:26 90 93/55 (68) 03/12/17 11:54 78 95/58 (70) 03/12/17 11:54 16 03/12/17 11:26 79 99/59 (72) 03/12/17 11:25 97.7 16 03/12/17 10:55 75 16 101/60 (74) 03/12/17 09:53 83 16 93/57 (69) 03/12/17 09:21 84 95/62 (73) 03/12/17 08:51 88 90/61 (71) 03/12/17 08:51 97.6 16 03/12/17 06:30 16 Objective Pelvic Exam: Cervix: [-] Dilatation: [-] Effacement: [-] Station: [-] Presentation: [-] Membranes: [intact or ruptured] Uterine Contractions: [-] FHT's: Category: [-] Baseline: [-] Reactive: [-] Variability: [-] Decels: [-] Weeks Gestation: 38 Pt started active labor?: No Medical induction of labor?: No Artificial rupture of membrane: No Assessment/Plan Assessment and Plan FHTs cat 1 irregular ctx pitocin @ 10 epidural requested pt counseled that she has ativan PRN but can not receive opiates Yumiko Zee MD Mar 12, 2017 13:39
[2017-03-12] MEDS ORDERED: BUPIVACAINE HCL PF 0.25% 10 ML VIAL ONE (14:01)
[2017-03-12] MEDS ORDERED: ePHEDrine/NS 25 MG/5 ML SYRINGE ONE (14:02)
[2017-03-12] MEDS ORDERED: ePHEDrine/NS 25 MG/5 ML SYRINGE IV PUSH PRN ×2 (15:30→20:00)
[2017-03-12] MEDS ORDERED: DO NOT ADMINISTER ANTICOAGULANTS PRN ×2 (15:30→20:00)
[2017-03-12] MEDS ORDERED: fentaNYL 2MCG-BUPIV 0.125% 100 ML EPIDURAL SCH ×2 (15:30→20:00)
[2017-03-12] MEDS ORDERED: NO SYSTEM NARCOTICS PRN ×2 (15:30→20:00)
[2017-03-12] MEDS ORDERED: DIPHTH/TETANUS/ACEL PERTUSSIS (BOOSTER) 0.5 ML VIAL/PFS IM ONE (16:00)
[2017-03-12] MEDS ORDERED: MEASLES, MUMPS, RUBELLA VACCINE 0.5 ML VIAL SQ ONE (16:00)
--- NOTE | 2017-03-12 17:46 | HHI.PR ---
[employer] Note Note Over the past several hours, pt has become increasingly irritable and uncooperative. She had a visitor bring her food and when she was informed that she could not have PO intake other than clears for her own safety while in labor , she became irate, irrational, and hysterical. FHTs were difficult to trace but pt refused FSE. She also refused ephedrine when BP was 80/56. Pt was counseled on risks of UT/CVA if BP was not stablized. Pt stated that she was sorry she came to this hospital and if she had insurance she "would fire" me. Pt stated that she "had rights". I explained to pt that my goal was to keep her and the baby safe and alive. She shouted that we were making it a miserable experience for her and she was "going through alot". She insisted she was doing nothing to put herself or the baby at risk. I explained that using IV drugs less than 12 hours prior, refusing medication for her BP, and refusing to allow me to safely monitor the baby were all risks. She yelled, cursed, and wished me to and have bad karma. I firmly explained that my responsibility was to merely keep her and the baby alive and safe and that we have protocols and processes in place to aid that should she not be reasonable and cooperative. audiovisual librarian, wellness program manager, and community director notified of situation. Fire Pot Operator and Security briefed on the situation. Yumiko Zee MD Mar 12, 2017 17:46
[2017-03-12 18:45] LABS: BLOOD GAS BASE EXCESS -2.5 mmol/L (-2-2); BLOOD GAS O2 HGB SATURATION 49 % (90-100); CORD BLOOD GAS HCO3 24 mmol/L (21-29); CORD BLOOD GAS PCO2 56 mmHG (34-78); CORD BLOOD GAS PH 7.25 (7.14-7.42); CORD BLOOD GAS PO2 26 mmHG (3.0-40.0); DRAW SITE CORD BLOOD; STAT NO
[2017-03-12] MEDS ORDERED: DOCUSATE SODIUM 50 MG/SENNA 8.6 MG TAB PO PRN (19:00)
[2017-03-12] MEDS ORDERED: WITCH HAZEL 50%/GLYCERIN 12.5% 40 PAD JAR TOPICAL PRN (19:00)
[2017-03-12] MEDS ORDERED: ONDANSETRON ODT 4 MG TAB PO PRN (19:00)
[2017-03-12] MEDS ORDERED: IBUPROFEN 800 MG TAB PO PRN (19:00)
[2017-03-12] MEDS ORDERED: ALUMINUM/MAGNESIUM/SIMETH 30 ML CUP PO PRN (19:00)
[2017-03-12] MEDS ORDERED: ACETAMINOPHEN 325 MG TAB PO PRN (19:00)
--- NOTE | 2017-03-12 19:05 | PD.OB.DELI ---
Weeks gestation: 38 Pt started active labor?: Yes Medical induction of labor?: Yes Artificial rupture of membrane: No Anesthesia: Epidural Vaginal Delivery: Normal, Vacuum Presentation: Occiput anterior Nuchal Cord: None Delayed cord clamping (45 sec): Yes Infant: Male Delivery date: Mar 12, 2017 Delivery time: 18:26 One Minute : 8 Five Minute : 9 Weight: 2140g Placenta: Manual removal, Intact, 3 vessel cord, Cord pH Laceration: No lacerations Estimated blood loss: 100 Additional Information head was initial OP and rotated to OA. Bladder was emptied via I&O cath ( 850cc) as pt had refused cath prior. Indication: Pt was ineffectively pushing 2' to recent ativan. She and the adoptive parents were counseled on the R/B/A of the procedure including increased risk of maternal laceration, increased risk of cephalohematoma, and rare risks of IVH/retinal hemorrhage. Technique: After obtaining verbal consent, Kiwi vacuum was placed on the occiput at +2 station. Correct placement was verified and no maternal tissue noted in vacuum cup. In concert with maternal effort, gentle traction was applied to guide the head under the pubic bone. 3 pulls were needed to deliver head. 0 pop-offs occurred. Vacuum pressure was released and patient pushed to deliver a viable male infant per above. Yumiko Zee MD Mar 12, 2017 19:05
[2017-03-12] MEDS ORDERED: REMOVE OLD PATCH T-DERMAL SCH (21:00)
--- NOTE | 2017-03-12 21:03 | PD.PSY.CON ---
Provisional Diagnosis Admission Date Mar 12, 2017 at 00:59 [place]. Adjustment disorder with mixed disturbance of emotion and conduct Polysubstance abuse History of Present Illness Service Psychiatry Consult Requested By Dr. Zee Reason for Consult Question of competency Primary Care Physician No Primary Care Physician HPI 26-year-old female here voluntarily with significant history of IV drug abuse. Patient just delivered prematurely and both mother and baby are positive for drugs. Baby is to be adopted. Mother has been erratic and irrational in her comments and behavior. She is stating now she wants to leave and this physician was consulted to offer an opinion as to her competency to make medical decisions. Patient does not demonstrate any psychotic symptoms at this time. She demonstrates no cognitive deficits. She does not appear clinically intoxicated. She is irritable and dysphoric. She admits to IV drug use but does not want treatment for this. In fact, she wants to go home, eventually get a job and return to work. She denies suicidal or homicidal ideation, plan or intent. In fact, she is verbally leoncio for safety and she is competent to do so. She plans to leave the baby for adoption and feels good about this. She has been through drug withdrawal previously but does not want medication assistance with this. She denies significant symptoms of depression and repeatedly tells this physician "I'm fine". Review of Systems Psychiatric: COMPLAINS OF: Mood changes Except as stated in HPI: all other systems reviewed are Neg Past Family Social History Coded Allergies: *MDRO Multi-Drug Resistant Organism (Verified Allergy, Unknown, 09/07/16) MRSA (blood)-09/01/16 Reported Medications Pnv No.95/Ferrous Fum/Folic AC ( Vitamins Tablet) 28 Mg Iron-800 Mcg Tablet 03/12/17 Current Medications Medications (Trade) Dose Ordered Sig/Shireen Route Start Time Stop Time Status Last Admin Lactated Ringer's 1,000 ml @ 125 mls/hr Q8H IV 03/12/17 01:21 03/12/17 16:42 Lactated Ringer's 1,000 ml @ 3,000 mls/hr Q20M PRN IV 03/12/17 01:21 03/12/17 16:42 Sodium Chloride 500 ml @ 1,000 mls/hr ONCE PRN IV 03/12/17 01:30 03/16/17 01:29 Sodium Chloride 1,000 ml @ 100 mls/hr Q10H PRN IV 03/12/17 01:41 (Xylocaine 1% Inj (50 ml)) 0.1 ml UNSCH X1 PRN I-DERMAL 03/12/17 01:30 03/15/17 01:29 (Bicitra Liq) 30 ml [employer] PO 03/12/17 01:30 03/16/17 01:29 03/12/17 02:01 (fentaNYL INJ) 50 mcg Q1H PRN IV PUSH 03/12/17 01:30 (fentaNYL INJ) 100 mcg Q1H PRN IV PUSH 03/12/17 01:30 (Xylocaine 1% Inj (50 ml)) 10 ml UNSCH X1 PRN INFIL 03/12/17 01:30 03/14/17 01:29 (Muri-Lube Oil) 10 ml UNSCH PRN TOPICAL 03/12/17 01:30 (Tums Chew) 500 mg Q4HR CHEW 03/12/17 04:00 (Habitrol 21 Mg Patch.24 Hr) 1 patch DAILY T-DERMAL 03/12/17 09:00 Miscellaneous Information 1 HS T-DERMAL 03/12/17 21:00 (Ativan Inj) 1 mg Q4H PRN IV PUSH 03/12/17 02:00 03/12/17 17:20 (Ambien) 5 mg HS PRN PO 03/12/17 03:00 03/12/17 03:03 Oxytocin 500 ml @ 0 mls/hr TITRATE IV 03/12/17 12:15 Penicillin G Potassium [id number] units/Sodium Chloride 100 ml @ 200 mls/hr Q4H IV 03/12/17 12:30 03/12/17 16:42 Miscellaneous Information No systemic narcotics to be given except... UNSCH PRN .XX 03/12/17 15:30 03/13/17 15:29 Miscellaneous Information DO NOT ADMINISTER ANY ANTICOAGUL... UNSCH PRN .XX 03/12/17 15:30 03/13/17 15:29 Fentanyl/ Bupivacaine HCl 100 ml @ 0 mls/hr TITRATE EPIDURAL 03/12/17 15:30 (ePHEDrine/NS 25 MG/5 ML SYR) 10 mg UNSCH PRN IV PUSH 03/12/17 15:30 12/23/17 15:29 Oxytocin 500 ml @ 100 mls/hr CONTINUOUS IV 03/12/17 19:00 03/12/17 23:59 (Tylenol) 650 mg Q4H PRN PO 03/12/17 19:00 (Motrin) 800 mg Q8H PRN PO 03/12/17 19:00 (Tucks Pads) 1 applic QID PRN TOPICAL 03/12/17 19:00 (Alix-Colace) 2 tab Q12H PRN PO 03/12/17 19:00 (Mag-Al Plus Susp Liq) 15 ml Q8H PRN PO 03/12/17 19:00 (Zofran Odt) 4 mg Q6H PRN PO 03/12/17 19:00 Family Psych History Patient declines to speak about family history. 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 Obviously post . Minimal family support. Has friends she can stay with temporarily. Patient's Strengths (min. 2) Resilient and has access to healthcare Physical Exam Vital Signs Vital Signs Date Time Temp Pulse Resp B/P (MAP) Pulse Ox O2 Delivery O2 Flow Rate FiO2 03/12/17 18:45 18 03/12/17 17:31 82 114/71 (85) 03/12/17 15:36 97.0 Lab Results Test 03/12/17 01:00 03/12/17 02:15 03/12/17 02:16 03/12/17 03:57 Urine Color YELLOW Urine Turbidity CLEAR Urine pH 6.0 Urine Specific [place] 1.024 Urine Protein TRACE mg/dL Urine Glucose (UA) NEG mg/dL Urine Ketones 10 mg/dL Urine Occult Blood NEG Urine Nitrite NEG Urine Bilirubin NEG Urine Urobilinogen LESS THAN 2.0 MG/DL Urine Leukocyte Esterase NEG Urine RBC 1 /hpf Urine WBC 2 /hpf Urine Squamous Epithelial Cells 1 /hpf Urine Bacteria RARE /hpf Urine Mucus FEW /lpf Microscopic Urinalysis Comment CULT NOT INDICATED Urine Opiates Screen POS Urine Barbiturates Screen NEG Urine Amphetamines Screen POS Urine Benzodiazepines Screen POS Urine Cocaine Screen NEG Urine Cannabinoids Screen POS Chlamydia trachomatis DNA (PCR) NOT DETECTED Neisseria gonorrhoeae DNA (PCR) NOT DETECTED Nasal Screen MRSA (PCR) MRSA NOT DETECTED Group B Streptococcus (PCR) NEGATIVE White Blood Count 7.8 TH/MM3 Red Blood Count 3.66 MIL/MM3 Hemoglobin 10.0 GM/DL Hematocrit 30.0 % Mean Corpuscular Volume 82.0 FL Mean Corpuscular Hemoglobin 27.2 PG Mean Corpuscular Hemoglobin Concent 33.2 % Red Cell Distribution Width 14.6 % Platelet Count 240 TH/MM3 Mean Platelet Volume 7.8 FL Neutrophils (%) (Auto) 70.3 % Lymphocytes (%) (Auto) 21.4 % Monocytes (%) (Auto) 7.4 % Eosinophils (%) (Auto) 0.6 % Basophils (%) (Auto) 0.3 % Neutrophils # (Auto) 5.5 TH/MM3 Lymphocytes # (Auto) 1.7 TH/MM3 Monocytes # (Auto) 0.6 TH/MM3 Eosinophils # (Auto) 0.0 TH/MM3 Basophils # (Auto) 0.0 TH/MM3 CBC Comment DIFF FINAL Differential Comment Rapid Plasma Reagin NON-REACTIVE Hepatitis A IgM Antibody NEGATIVE Hepatitis B Surface Antigen NEGATIVE Hepatitis B Core IgM Antibody NEGATIVE Hepatitis C Antibody REACTIVE HIV (1&2) Antibody NEGATIVE Test 03/12/17 18:35 Date/Time Source Procedure Growth Status 03/12/17 02:16 Genital Genital Region Group B Streptococcus Screen Pending Received Mental Status Examination Appearance: Disheveled Consciousness: Alert Orientation: x4 Motor Activity: Normal gait Speech: Unremarkable Language: Adequate Fund of Knowledge: Adequate Attention and Concentration: Adequate Memory: Unremarkable Mood: Irritable Affect: Irritable Thought Process & Associations: Intact Thought Content: Appropriate Hallucination Type: None Delusion Type: None Suicidal Ideation: No Suicidal Plan: No Suicidal Intention: No Homicidal Ideation: No Homicidal Plan: No Homicidal Intention: No Insight: Adequate Judgment: Adequate Assessment & Plan Problem List: (1) Adjustment disorder with mixed disturbance of emotions and conduct ICD Codes: F43.25 - Adjustment disorder with mixed disturbance of emotions and conduct (2) Polysubstance abuse ICD Codes: F19.10 - Other psychoactive substance abuse, uncomplicated Assessment & Plan Estimated LOS: days. Patient interviewed at bedside. Medical record reviewed. Case discussed with Dr. Zee. Patient is felt to be competent to make medical decisions. She is not currently psychotic, suffering from cognitive deficits or so emotionally unstable as to be irrational in her thinking. Patient is acknowledged to be likely to return to drug abuse and may "act out" at some unpredictable and unavoidable time in the future. If she does so, however, she should be considered responsible for her actions. She does not currently suffer from an incapacitating mental disorder that would qualify for a Silverman act or involuntary psychiatric hospitalization at this time. Finally, patient declines any treatment for drug abuse or possible drug withdrawal. She is knowledgeable however on the subject and knew of the risks and benefits of clonidine. Carlos Frank MD Mar 12, 2017 21:03
== END 2017-03-12 22:20 | disposition left against medical advice (07) | DRG 775 ==
LOC: HOBED 00:43 → H2EB 00:59
PROVIDERS: ADMIT Obstetrics & Gynecology Maternal & Fetal Medicine; ATTEND Obstetrics & Gynecology Maternal & Fetal Medicine
PROC: 10D07Z6 Extraction of Products of Conception, Vacuum, Via Natural or Artificial Opening (ICD-10-PCS; principal; 2017-03-12)
DX: O99.324 Drug use complicating childbirth (principal); O99.344 Other mental disorders complicating childbirth; F11.10 Opioid abuse, uncomplicated; Z37.0 Single live birth; F17.210 Nicotine dependence, cigarettes, uncomplicated; O99.334 Smoking (tobacco) complicating childbirth; F12.10 Cannabis abuse, uncomplicated; F15.10 Other stimulant abuse, uncomplicated; Z3A.38 38 weeks gestation of pregnancy; Z86.14 Personal history of Methicillin resistant Staphylococcus aureus infection; K21.9 Gastro-esophageal reflux disease without esophagitis; O99.62 Diseases of the digestive system complicating childbirth; F43.25 Adjustment disorder with mixed disturbance of emotions and conduct
CPT/HCPCS: 76937; 80074; 80307; 81001; 82805; 85025; 86592; 86703; 87081; 87150; 87491; 87591; 87641; 99285; G0481; J2060; J2540; J2590; J7120